=== PATIENT | male | born 1995 | race Two or more races ===

== ENCOUNTER 2021-06-14 22:34 | Emergency (ER) | payer SELFPAY ==
[~2021-06-14] VITALS: Ht 170.2 cm; Wt 63.6 kg
[2021-06-14 22:35] VITALS: BP 129/76
[2021-06-15 00:02] LABS: APPEARANCE,URINE CLEAR (CLEAR); BILIRUBIN,URINE NEGATIVE (NEGATIVE); GLUCOSE, URINE (UA) NEGATIVE (NEGATIVE); KETONES,URINE 15 mg/dL (NEGATIVE); LEUKOCYTE ESTERASE ,URINE NEGATIVE (NEGATIVE); NITRATE,URINE NEGATIVE (NEGATIVE); OCCULT BLOOD,URINE NEGATIVE (NEGATIVE); PROTEIN,URINE NEGATIVE (NEGATIVE); UROBILINOGEN,URINE 0.2 mg/dL (<=1.0)
[2021-06-15] MEDS ORDERED: CefTRIAXone SODIUM 1 GM/VIAL IM ONE (00:30)
[2021-06-15] MEDS ORDERED: AZITHROMYCIN 500 MG TABLET PO ONE (00:30)
[2021-06-15] MEDS ORDERED: LIDOCAINE/PF 1% 2 ML VIAL IM ONE (00:30)
== END 2021-06-15 00:38 | disposition home or self-care (01) ==
LOC: EMS 22:36
DX: N34.2 Other urethritis (principal); F12.90 Cannabis use, unspecified, uncomplicated
CPT/HCPCS: 81003; 96372; 99283; J0696; J3490; Q9967